=== PATIENT | female | born 1970 | race Caucasian/White ===

== ENCOUNTER → 2021-06-08 | Outpatient (CLI) | payer OTHER ==
[~2021-06-08] MED LIST: ALBU8.5H5 INH; OMEP-110 PO
== END | disposition home or self-care (01) ==
LOC: CFH 14:44
PROVIDERS: ATTEND Nurse Practitioner Family
DX: R92.2 Inconclusive mammogram (principal); N64.3 Galactorrhea not associated with childbirth
CPT/HCPCS: 77062; 77066; G0279